=== PATIENT | female | born 1995 | race Caucasian/White ===

== ENCOUNTER 2016-07-31 20:38 | Emergency (ER) | payer BC ==
[~2016-07-31] VITALS: Ht 157.5 cm; Wt 48.4 kg
[2016-07-31 20:41] VITALS: TEMP 36.7; Ht 157.5 cm; Wt 48.4 kg
[2016-07-31 20:50] VITALS: O2SAT 100
[2016-07-31] MEDS ORDERED: IBUPROFEN 600 MG TAB PO STA (20:56)
[2016-07-31 21:03] VITALS: BP 133/71; PULSE 76; O2SAT 100
[2016-07-31] MEDS ORDERED: FERR1TAB23 PO (21:14)
[2016-07-31] MEDS ORDERED: NORE1DIS7 TD (21:14)
[2016-07-31] MEDS ORDERED: [UNRECOGNIZED DRUG - REMARK] PO (21:14)
--- NOTE | 2016-07-31 23:41 | EMERGENCY ROOM VISIT NOTE ---
History Report prepared by Macieibelroy: Otto Mclaughlin Under the Supervision of: Dr. Maikel Powell M.D. First contact with patient: 20:46 Chief Complaint: CHEST PAIN Stated Complaint: CHEST PAIN - HARD TO BREATH History of Present Illness The patient is a 21 year old female who presents to the Emergency Room with complaints of persistent left-sided chest pain for the past 30-45 minutes. The pain does not move around and is not worsened with breathing. Pain is rated 6/ 10 in severity. The patient also complains of feeling short of breath. She has history of a heart murmur, irregular heart beat, and esophageal spasm. The patient has been more physically active lately, however she denies any strain or injury to the chest. She does not have any history of blood clots and is not on blood thinners. She has no known family history of clots. The patient is on control. She had a [address] from [place] three weeks ago. Source of History: patient Onset: 30-45 minutes ago Position: chest (left) Symptom Intensity: 6/10 Timing: other (persistent) Associated Symptoms: + SOB Review of Systems See HPI for pertinent positives & negatives. A total of 10 systems reviewed and were otherwise negative. Past Medical & Surgical Medical Problems: (1) Esophageal spasm (2) Irregular heartbeat (3) Murmur Family History No pertinent family history Social History Smoking Status: Never Smoker Occupation Status: employed Current/Historical Medications Scheduled Ferrous Sulfate (Iron), 1 TAB PO DAILY Norelgestromin-Ethinyl Estradi (Xulane 150-35 Mcg/24Hr), 1 PATCH TD WK Scheduled PRN [Itch Pill], 1 CAP PO HS PRN for Itching Physical Exam Vital Signs Date Time Temp Pulse Resp B/P (MAP) Pulse Ox O2 Delivery O2 Flow Rate FiO2 07/31/16 21:03 76 21 133/71 100 Room Air 07/31/16 21:01 100 Room Air 07/31/16 20:50 100 Room Air 07/31/16 20:41 36.7 92 16 126/77 100 Room Air Physical Exam GENERAL: Patient is in no acute distress. HEENT: No acute trauma, normocephalic atraumatic, mucous membranes moist, no nasal congestion, no scleral icterus. NECK: No stridor, no adenopathy, no meningismus, trachea is midline. LUNGS: Clear to auscultation bilaterally, no wheeze, no rhonchi, breath sounds equal. HEART: 2/6 systolic murmur, regular rate and rhythm. CHEST: Left chest wall tenderness with palpation, no rash. ABDOMEN: Soft, nontender, bowel sounds positive, no hernias, no peritonitis. EXTREMITIES: No cyanosis or edema, full range of motion of all the joints without pain or difficulty, no signs for acute trauma. NEUROLOGIC: Oriented x 3, no acute motor or sensory deficits, no focal weakness. SKIN: No rash, no jaundice, no diaphoresis. Medical Decision & Procedures Medications Administered Medications (Trade) Dose Ordered Sig/Nadeem Route Start Time Stop Time Status Last Admin Dose Admin Ibuprofen (Motrin Tab) 600 mg NOW STAT PO 07/31/16 20:56 07/31/16 20:57 DC 07/31/16 21:01 600 MG ECG Indication: chest pain Rate (beats per minute): 84 Findings: no acute ischemic change, no ectopy, other (no dysrhythmia) ED Course 2046: The patient was evaluated in room C8. A complete history and physical exam was performed. 2100: Discussed the patient leaving if her EKG is normal. She will return to the ED if her pain persists tomorrow. Discussed the discharge instructions. She verbalized understanding and agreement. The patient is ready for discharge. Medical Decision Differential diagnosis includes musculoskeletal pain, aortic dissection, PE, dysrhythmia, RI, pneumonia, pneumothorax. Medication Reconciliation: I attest that I have personally reviewed the patient' s current medication list. Blood Pressure Screening: Patient was found to have normal blood pressure on screening and does not require follow-up. The patient presents with left-sided chest pain. She has been tumbling and has been very active. The pain is reproducible on exam. She was concerned because of her previous heart history. Her lungs are clear, she does have a slight murmur to her heart but this is known. EKG shows a normal sinus rhythm, no acute ischemia. The patient was not toxic or febrile. She's not had leg edema , there is no history of DVT or PE. Her pain is not truly pleuritic, she is not tachycardic. The patient does not want any further testing. She was reassured with the EKG. She was given some oral Motrin for pain, she was discharged and encouraged to return for worsening symptoms or persistent symptoms. Her pain is likely musculoskeletal. Impression Primary Impression: Left sided chest pain Scribe Attestation The scribe's documentation has been prepared under my direction and personally reviewed by me in its entirety. I confirm that the note above accurately reflects all work, treatment, procedures, and medical decision making performed by me. Departure Information Dispostion Home / Self-Care Referrals No Doctor, Assigned (PCP) Forms HOME CARE DOCUMENTATION FORM, IMPORTANT VISIT INFORMATION Patient Instructions My [facility] Additional Instructions motrin 600 mg 3x per day for pain heat the area may help return if worsening as we discussed today's ECG was normal
== END 2016-07-31 21:08 | disposition home or self-care (01) ==
LOC: C.EDB 20:38 → C.EDC 21:08
DX: R07.9 Chest pain, unspecified (principal); R06.00 Dyspnea, unspecified; Z79.3 Long term (current) use of hormonal contraceptives